=== PATIENT | female | born 1970 | race Caucasian/White ===

== ENCOUNTER 2016-10-26 13:35 | Emergency (ER) | payer OTHER ==
[2016-10-26] MEDS ORDERED: IBUPROFEN 600 MG TABLET PO ONE (14:20)
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
[2016-10-26] MEDS ORDERED: METHOCARBAMOL 500 MG TABLET PO ONE (16:21)
[2016-10-26 16:48] VITALS: BP 156/72
== END 2016-10-26 16:48 | disposition home or self-care (01) ==
LOC: ER 13:35
DX: M62.830 Muscle spasm of back (principal); M54.5 Low back pain; V87.7XXA Person injured in collision between other specified motor vehicles (traffic), initial encounter
CPT/HCPCS: 72110; 99283

== ENCOUNTER → 2017-01-01 | Outpatient (CLI) | payer OTHER | LOC: OD 14:02 | PROVIDERS: ATTEND Nurse Practitioner Acute Care | DX: S90.122A Contusion of left lesser toe(s) without damage to nail, initial encounter (principal); X58.XXXA Exposure to other specified factors, initial encounter ==

== ENCOUNTER 2018-03-22 07:08 | Emergency (ER) | payer OTHER ==
--- NOTE | 2018-03-22 08:24 | ER Document Report ---
ED Medical Screen (RME) - General Chief Complaint: Headache Stated Complaint: HEADACHE, DIZZY, NAUSEA Time Seen by Provider: 03/22/18 08:21 Mode of Arrival: Ambulatory Information source: Patient Notes: Patient presents to the emergency department with complaints of headache dizziness nausea for the past 3 days. Reports she woke up this morning went in the shower and became dizzy so she came here. Was evaluated by her primary care provider on Sunday and treated with hydrochlorothiazide. Has a follow-up appointment on the . Looks good nontoxic looking. TRAVEL OUTSIDE OF THE [place] IN LAST 30 DAYS: No - Related Data Allergies/Adverse Reactions: No Known Allergies Allergy (Verified 06/09/17 18:14) Past Medical History - Past Medical History Cardiac Medical History: Reports: Hx Hypertension Pulmonary Medical History: Reports: Hx Bronchitis Neurological Medical History: Reports: Hx Migraine Renal/ Medical History: Denies: Hx Peritoneal Dialysis GI Medical History: Reports: Hx Gastroesophageal Reflux Disease Psychiatric Medical History: Denies: Hx Depression - Immunizations Immunizations up to date: Yes Hx Diphtheria, Pertussis, Tetanus Vaccination: Yes Physical Exam - Vital signs Vitals: Temp Pulse BP Pulse Ox 98.1 F 85 150/87 H 98 03/22/18 07:16 03/22/18 07:16 03/22/18 07:16 03/22/18 07:16 Course - Vital Signs Vital signs: Temp Pulse Resp BP Pulse Ox 98.1 F 85 150/87 H 98 03/22/18 07:16 03/22/18 07:16 03/22/18 07:16 03/22/18 07:16 Doctor's Discharge - Discharge Referrals: KAITLIN DUNCAN MD [Primary Care Provider] - Follow up as needed
[2018-03-22 09:19] LABS: ABSOLUTE BASOPHILS # (AUTO) 0.1 10^3/uL (0.0-0.2); ABSOLUTE EOSINOPHILS # (AUTO) 0.1 10^3/uL (0.0-0.6); ABSOLUTE LYMPHOCYTES (AUTO) 2.6 10^3/uL (0.5-4.7); ABSOLUTE MONOCYTES (AUTO) 0.9 10^3/uL (0.1-1.4); ABSOLUTE NEUT (AUTO) 5.6 10^3/uL (1.7-8.2); BASOPHILS % (AUTO) 0.8 % (0-2); EOSINOPHILS % (AUTO) 1.4 % (0-6); HEMATOCRIT 41.4 % (36.0-47.0); HEMOGLOBIN 14.1 g/dL (12.0-15.5); LYMPHOCYTES % (AUTO) 27.4 % (13-45); MEAN CORPUSCULAR HEMOGLOBIN 28.7 pg (27.0-33.4); MEAN CORPUSCULAR HGB CONC 34.1 g/dL (32.0-36.0); MEAN CORPUSCULAR VOLUME 84 fl (80-97); MONOCYTES % (AUTO) 9.8 % (3-13); PLATELET COUNT 345 10^3/uL (150-450); RED BLOOD COUNT 4.91 10^6/uL (3.72-5.28); SEGMENTED NEUTROPHILS % (AUTO) 60.6 % (42-78); TOTAL CELLS COUNTED % (AUTO) 100 %; WHITE BLOOD COUNT 9.3 10^3/uL (4.0-10.5)
[2018-03-22 09:30] LABS: ALANINE AMINOTRANSFERASE 53 U/L (9-52); ALKALINE PHOSPHATASE 52 U/L (38-126); ANION GAP 10 (5-19); ASPARTATE AMINO TRANSFERASE 30 U/L (14-36); BILIRUBIN,DIRECT 0.2 mg/dL (0.0-0.4); BILIRUBIN,TOTAL 0.5 mg/dL (0.2-1.3); BLOOD UREA NITROGEN 10 mg/dL (7-20); CALCIUM 9.3 mg/dL (8.4-10.2); CARBON DIOXIDE 29 mmol/L (22-30); CHLORIDE 102 mmol/L (98-107); GLUCOSE 109 mg/dL (75-110); POTASSIUM 3.7 mmol/L (3.6-5.0); SODIUM 140.8 mmol/L (137-145); TOTAL PROTEIN 6.9 g/dL (6.3-8.2)
[2018-03-22 09:31] LABS: APPEARANCE,URINE SLIGHTLY-CLOUDY; BILIRUBIN,URINE NEGATIVE (NEGATIVE); COLOR,URINE YELLOW; GLUCOSE, URINE NEGATIVE (NEGATIVE); KETONES,URINE NEGATIVE (NEGATIVE); LEUKOCYTE ESTERASE,URINE NEGATIVE (NEGATIVE); NITRITE,URINE NEGATIVE (NEGATIVE); PROTEIN,URINE NEGATIVE (NEGATIVE); URINE SPECIFIC GRAVITY 1.018; UROBILINOGEN,URINE NEGATIVE mg/dL (<2.0)
--- NOTE | 2018-03-22 09:55 | EKG REPORT ---
SEVERITY:- BORDERLINE ECG - SINUS RHYTHM BORDERLINE T WAVE ABNORMALITIES : Confirmed by: Ruthie Xie MD 22-Mar-2018 09:54:56
--- NOTE | 2018-03-22 09:58 | ER Document Report ---
ED General - General Chief Complaint: Headache Stated Complaint: HEADACHE, DIZZY, NAUSEA Time Seen by Provider: 03/22/18 08:21 Mode of Arrival: Ambulatory Information source: Patient Notes: Patient complains primarily of a persistent dry cough, which she has noted since beginning on hydrochlorothiazide a week ago. She denies fever, chills, sore throat, or sputum production. She does have a frequent headache, which is not unusual and is adequately managed with ibuprofen. TRAVEL OUTSIDE OF THE [place] IN LAST 30 DAYS: No - HPI Onset: Last week Onset/Duration: Gradual Quality of pain: No pain Severity: Mild Associated symptoms: Nonproductive cough, Headache. denies: Chills, Productive cough, Fever, Nausea, Shortness of breath, Sore throat Exacerbated by: Denies Relieved by: Denies Similar symptoms previously: No Recently seen / treated by doctor: Yes - PCP, ONE WEEK AGO - Related Data Allergies/Adverse Reactions: No Known Allergies Allergy (Verified 06/09/17 18:14) Past Medical History - General Information source: Patient - Social History Smoking Status: Unknown if Ever Smoked Chew tobacco use (# tins/day): No Frequency of alcohol use: Rare Drug Abuse: None Lives with: Family Family History: Arthritis, CAD, CVA, Hyperlipidemia, Hypertension Patient has suicidal ideation: No Patient has homicidal ideation: No - Past Medical History Cardiac Medical History: Reports: Hx Hypertension Pulmonary Medical History: Reports: Hx Asthma, Hx Bronchitis EENT Medical History: Reports: None Neurological Medical History: Reports: Hx Migraine Endocrine Medical History: Reports: None Renal/ Medical History: Reports: None. Denies: Hx Peritoneal Dialysis Malignancy Medical History: Reports: None GI Medical History: Reports: Hx Gastroesophageal Reflux Disease Musculoskeletal Medical History: Reports None Psychiatric Medical History: Reports: None Denies: Hx Depression - Immunizations Immunizations up to date: Yes Hx Diphtheria, Pertussis, Tetanus Vaccination: Yes Review of Systems - Review of Systems Constitutional: No symptoms reported. denies: Chills, Fever EENT: No symptoms reported. denies: Throat pain Cardiovascular: No symptoms reported Respiratory: See HPI Gastrointestinal: No symptoms reported Genitourinary: No symptoms reported Musculoskeletal: No symptoms reported Skin: No symptoms reported Neurological/Psychological: No symptoms reported Physical Exam - Vital signs Vitals: Temp Pulse BP Pulse Ox 98.1 F 85 150/87 H 98 03/22/18 07:16 03/22/18 07:16 03/22/18 07:16 03/22/18 07:16 Interpretation: Hypertensive. No: Tachycardic - General General appearance: Appears well, Alert In distress: None - HEENT Head: Normocephalic Eyes: Normal Conjunctiva: Normal Ears: Normal External canal: Normal Tympanic membrane: Normal Nasal: Normal Mouth/Lips: Normal Mucous membranes: Normal Pharynx: Normal Neck: Normal - Respiratory Respiratory status: No respiratory distress Breath sounds: Normal - Cardiovascular Rhythm: Regular Heart sounds: Normal auscultation Murmur: No - Abdominal Inspection: Obese - Extremities General upper extremity: Normal inspection General lower extremity: Edema - 1+, BILAT. - Neurological Neuro grossly intact: Yes Cognition: Normal Orientation: AAOx4 - Psychological Associated symptoms: Normal affect, Normal mood - Skin Skin Temperature: Warm Skin Moisture: Dry Skin Color: Normal Skin Turgor: Elastic Course - Vital Signs Vital signs: Temp Pulse Resp BP Pulse Ox 98.1 F 85 13 182/96 H 98 03/22/18 07:16 03/22/18 07:16 03/22/18 10:01 03/22/18 10:01 03/22/18 10:01 - Laboratory Result Diagrams: 03/22/18 08:55 03/22/18 08:55 Laboratory results interpreted by me: 03/22/18 08:55 ALT 53 H - EKG Interpretation by Ia EKG shows normal: Sinus rhythm, [place], Intervals, QRS Complexes. abnormal: ST-T Waves - BORDERLINE T ABNLS, NS Rate: Normal Rhythm: NSR Discharge - Discharge Clinical Impression: Cough Headache Qualifiers: Headache type: primary cough headache Qualified Code(s): G44.83 - Primary cough headache Condition: Stable Disposition: HOME, SELF-CARE Instructions: Headache ([facility]), Tessalon Perles ([facility]) Additional Instructions: CONTINUE PRESENT MEDS. YOU MAY TAKE TESSALON PERLES DIRECTED, IF NEEDED FOR COUGH SUPPRESSION. FOLLOW UP WITH YOUR PRIMARY CARE PROVIDER SCHEDULED. RETURN TO E.R. IF PROBLEMS. Prescriptions: Benzonatate [Tessalon Perles 100 mg Capsule] 100 mg PO Q8HP PRN #40 capsule PRN Reason: Forms: Return to Work Referrals: KAITLIN DUNCAN MD [Primary Care Provider] - Follow up as needed
[2018-03-22 10:51] VITALS: BP 163/103
== END 2018-03-22 11:00 | disposition home or self-care (01) ==
LOC: ER 07:08
DX: R05 Cough (principal); G44.83 Primary cough headache; I10 Essential (primary) hypertension; J45.909 Unspecified asthma, uncomplicated; R60.0 Localized edema
CPT/HCPCS: 36415; 80053; 81001; 85025; 93005; 93010; 99284

== ENCOUNTER 2018-06-18 07:59 | Emergency (ER) | payer OTHER ==
[2018-06-18] MEDS ORDERED: SULFAMETHOXAZOLE/TRIMETHOPRIM 800-160 MG TABLET PO ONE (08:25)
--- NOTE | 2018-06-18 08:25 | ER Document Report ---
ED Skin Rash/Insect Bite/Abscs - General Mode of Arrival: Ambulatory Information source: Patient TRAVEL OUTSIDE OF THE [place] IN LAST 30 DAYS: No <STEVEN SOLARES - Last Filed: 06/18/18 08:55> <HARLEY CARRION - Last Filed: 06/18/18 10:36> - General Chief Complaint: Leg Swelling Stated Complaint: LEG SWELLING Time Seen by Provider: 06/18/18 08:14 Notes: 48-year-old female who presents to the emergency department today with complaints of right lower extremity pain, swelling, and redness. Patient states she has had cellulitis in the left lower extremity before after "a spider bite" which was likely an abscess. Patient states she did not see any insects that bit her. Patient denies fevers or vomiting. (STEVEN SOLARES) - Related Data Allergies/Adverse Reactions: No Known Allergies Allergy (Verified 06/18/18 08:01) Past Medical History - General Information source: Patient - Social History Smoking Status: Never Smoker Cigarette use (# per day): No Frequency of alcohol use: None Drug Abuse: None Lives with: Family Family History: Reviewed & Not Pertinent, Arthritis, CAD, CVA, Hyperlipidemia, Hypertension - Past Medical History Cardiac Medical History: Reports: Hx Hypertension Pulmonary Medical History: Reports: Hx Asthma, Hx Bronchitis Neurological Medical History: Reports: Hx Migraine GI Medical History: Reports: Hx Gastroesophageal Reflux Disease Surgical Hx: Negative - Immunizations Immunizations up to date: Yes Hx Diphtheria, Pertussis, Tetanus Vaccination: Yes <STEVEN SOLARES - Last Filed: 06/18/18 08:55> Review of Systems - Review of Systems Constitutional: denies: Fever EENT: No symptoms reported Cardiovascular: No symptoms reported Respiratory: No symptoms reported Gastrointestinal: denies: Vomiting Genitourinary: No symptoms reported Female Genitourinary: No symptoms reported Musculoskeletal: See HPI, Leg swelling - RLE Skin: No symptoms reported Hematologic/Lymphatic: No symptoms reported Neurological/Psychological: No symptoms reported -: Yes All other systems reviewed and negative <STEVEN SOLARES - Last Filed: 06/18/18 08:55> Physical Exam <STEVEN SOLARES - Last Filed: 06/18/18 08:55> <HARLEY CARRION - Last Filed: 06/18/18 10:36> - Vital signs Vitals: Temp Pulse Resp BP Pulse Ox 98.4 F 81 18 151/83 H 97 06/18/18 08:04 06/18/18 08:04 06/18/18 08:04 06/18/18 08:04 06/18/18 08:04 - Notes Notes: Physical Exam: General: Alert, appears well. HEENT: Normocephalic. Atraumatic. PERRL. Extraocular movements intact. Oropharynx clear. Neck: Supple. Non-tender. Respiratory: No respiratory distress. Clear and equal breath sounds bilaterally. Cardiovascular: Regular rate and rhythm. Abdominal: Obese. Non-tender. No distension. Normal Bowel Sounds. Back: Non-tender. No deformity or step off. Extremities: Moves all four extremities. Upper extremities: Normal inspection. Normal ROM. Lower extremities: Pitting edema in the RLE. Increased swelling, pain, and tenderness over right posterior calf. See skin exam. Normal ROM. Neurological: Normal cognition. AAOx4. Normal speech. Psychological: Normal affect. Normal Mood. Skin: Dry areas consistent with eczema to right lateral foot. Red splotchy areas on right lower extremity consistent with cellulitis. (STEVEN SOLARES) Course - Laboratory Result Diagrams: 06/18/18 09:04 06/18/18 09:04 - Diagnostic Test Radiology reviewed: Image reviewed - Venous Dopplers negative for DVT. <HARLEY CARRION - Last Filed: 06/18/18 10:36> - Vital Signs Vital signs: Temp Pulse Resp BP Pulse Ox 98.4 F 81 18 151/83 H 97 06/18/18 08:04 06/18/18 08:04 06/18/18 08:04 06/18/18 08:04 06/18/18 08:04 - Laboratory Laboratory results interpreted by me: 06/18/18 06/18/18 09:04 09:04 RDW 14.3 H Potassium 3.2 L Glucose 131 H Total Protein 6.2 L Discharge <STEVEN SOLARES - Last Filed: 06/18/18 08:55> <HARLEY CARRION - Last Filed: 06/18/18 10:36> - Discharge Clinical Impression: Cellulitis of right leg Condition: Stable Disposition: HOME, SELF-CARE Additional Instructions: Cellulitis You have an infection of your skin and underlying soft tissues called cellulitis. This is due to bacteria, which can enter through any break in the skin, or even through an irritated hair follicle. Untreated, cellulitis will usually worsen. Antibiotics are required. Usually, warm packs or warm soaks, and elevation of the infected area are recommended. You should start getting better within 24 to 36 hours. Most infections respond quickly to the right medication. Follow-up care is important, however, to check for abscess (boil) formation, unsuspected foreign body, or resistant infection. If you develop fever, chills, or if the area of infection is becoming rapidly more swollen or painful, call the doctor at once. Take the medications as prescribed. Take ibuprofen 800 mg every 8 hours for pain and inflammation. Elevate your foot and leg above your heart all the time. Limit walking. Follow-up with your primary care provider in the next 1-2 days to recheck the leg. RETURN TO THE EMERGENCY ROOM IF ANY NEW OR WORSENING SYMPTOMS. Prescriptions: Cephalexin Monohydrate [Keflex 500 mg Capsule] 500 mg PO QID #28 capsule Sulfamethoxazole/Trimethoprim [Septra-Ds 800-160 mg Tablet] 2 tab PO BID #28 tablet Forms: Return to Work Referrals: KAITLIN DUNCAN MD [Primary Care Provider] - Follow up tomorrow Scribe Attestation: 06/18/18 08:48 I personally performed the services described in the documentation, reviewed and edited the documentation which was dictated to the scribe in my presence, and it accurately records my words and actions. (HARLEY CARRION) Scribe Documentation - Scribe Written by Alejandra:: Alejandra De Souza, 06/18/2018 0941 acting as scribe for :: Glenn <STEVEN SOLARES - Last Filed: 06/18/18 08:55>
[2018-06-18] MEDS ORDERED: CEPHALEXIN 500 MG CAPSULE PO ONE (08:26)
[2018-06-18 09:26] LABS: ABSOLUTE EOSINOPHILS # (AUTO) 0.1 10^3/uL (0.0-0.6); ABSOLUTE LYMPHOCYTES (AUTO) 1.3 10^3/uL (0.5-4.7); ABSOLUTE MONOCYTES (AUTO) 0.7 10^3/uL (0.1-1.4); ABSOLUTE NEUT (AUTO) 5.3 10^3/uL (1.7-8.2); BASOPHILS % (AUTO) 0.5 % (0-2); EOSINOPHILS % (AUTO) 0.8 % (0-6); HEMATOCRIT 40.6 % (36.0-47.0); HEMOGLOBIN 14.3 g/dL (12.0-15.5); LYMPHOCYTES % (AUTO) 17.1 % (13-45); MEAN CORPUSCULAR HEMOGLOBIN 29.8 pg (27.0-33.4); MEAN CORPUSCULAR HGB CONC 35.3 g/dL (32.0-36.0); MEAN CORPUSCULAR VOLUME 84 fl (80-97); MONOCYTES % (AUTO) 9.7 % (3-13); PLATELET COUNT 202 10^3/uL (150-450); RED BLOOD COUNT 4.82 10^6/uL (3.72-5.28); RED CELL DISTRIBUTION WIDTH 14.3 % (11.5-14.0); SEGMENTED NEUTROPHILS % (AUTO) 71.9 % (42-78); TOTAL CELLS COUNTED % (AUTO) 100 %; WHITE BLOOD COUNT 7.4 10^3/uL (4.0-10.5)
[2018-06-18 09:37] LABS: ALANINE AMINOTRANSFERASE 37 U/L (9-52); ALBUMIN 3.5 g/dL (3.5-5.0); ALKALINE PHOSPHATASE 44 U/L (38-126); ANION GAP 13 (5-19); ASPARTATE AMINO TRANSFERASE 34 U/L (14-36); BILIRUBIN,TOTAL 0.2 mg/dL (0.2-1.3); BLOOD UREA NITROGEN 7 mg/dL (7-20); CARBON DIOXIDE 24 mmol/L (22-30); CHLORIDE 104 mmol/L (98-107); GLUCOSE 131 mg/dL (75-110); POTASSIUM 3.2 mmol/L (3.6-5.0); SODIUM 140.9 mmol/L (137-145); TOTAL PROTEIN 6.2 g/dL (6.3-8.2)
[2018-06-18 10:55] VITALS: BP 147/71
--- NOTE | 2018-06-18 13:35 | XCELERA REPORT ---
[address] [place] [facility] [address] Lower Extremity Venous Evaluation Procedure: Color flow and duplex imaging of the veins of the right lower extremity as well as the left Common Femoral vein. Right Sided Venous Evaluation Normal vessel filling wall to wall, compression and augmentation as well as Colour flow down to the infrageniculate veins. Left Sided Venous Evaluation The left common femoral vein is fully compressible. Spontaneous and phasic flow is present in the left common femoral vein. Interpretation Summary No duplex evidence of DVT or obstruction in the right lower extremity nor in the left Common Femoral vein. Name: CANDELARIO JUAN Age: 48 yrs Gender: Female : 1970 Patient Status: Emergency Patient Location: ER Study Date: 06/18/2018 10:18 AM Reason For Study: Right leg pain and swelling Ordering Physician: HARLEY CARRION Performed By: Sindy Estrella : HARLEY CARRION > Chetan Martinez
== END 2018-06-18 11:11 | disposition home or self-care (01) ==
LOC: ER 07:59
DX: L03.115 Cellulitis of right lower limb (principal); M79.89 Other specified soft tissue disorders; M79.604 Pain in right leg; I10 Essential (primary) hypertension; J45.909 Unspecified asthma, uncomplicated
CPT/HCPCS: 36415; 80053; 85025; 87040; 93971; 99284

== ENCOUNTER → 2019-05-11 | Outpatient (CLI) | payer OTHER ==
[2019-05-11 17:40] LABS: BACTERIA (WET MOUNT) 3+ BACTERIA SEEN; EPITHELIALS (WET MOUNT) 3+ EPITHELIALS SEEN; RBCS (WET MOUNT) 1+ RBCS SEEN; T.VAGINALIS (WET MOUNT) NO TRICHOMONAS SEEN; WBCS (WET MOUNT) 3+ WBCS SEEN; YEAST (WET MOUNT) NO YEAST SEEN
[2019-05-11 17:58] LABS: APPEARANCE,URINE SLIGHTLY-CLOUDY; BILIRUBIN,URINE NEGATIVE (NEGATIVE); CALCIUM OXALATE CRYSTALS,URINE MODERATE /HPF; COLOR,URINE YELLOW; GLUCOSE, URINE NEGATIVE (NEGATIVE); KETONES,URINE NEGATIVE (NEGATIVE); LEUKOCYTE ESTERASE,URINE NEGATIVE (NEGATIVE); NITRITE,URINE NEGATIVE (NEGATIVE); PROTEIN,URINE 30 mg/dL (NEGATIVE); URINE SPECIFIC GRAVITY 1.019
[2019-05-11 19:30] LABS: CHLAM PCR NOT DETECTED (NOT DETECT)
== END ==
LOC: LAB 17:31
PROVIDERS: ATTEND Nurse Practitioner Family
DX: N93.9 Abnormal uterine and vaginal bleeding, unspecified (principal)
CPT/HCPCS: 81001; 87086; 87210; 87491; 87591